=== PATIENT | male | born 2000 | race African-American/Black ===

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

== ENCOUNTER 2019-05-15 19:30 | Emergency (ER) | payer OTHER ==
[2019-05-15] MEDS ORDERED: SODIUM CHLORIDE 0.9% 1000ML 1,000 ML IVS PRN (19:46)
[2019-05-15] MEDS ORDERED: SODIUM CHLORIDE 0.9% (FLUSH) 10 ML SYG IV PRN (19:46)
[2019-05-15 19:47] VITALS: O2SAT 99
[2019-05-15] MEDS ORDERED: KETOROLAC TROMETHAMINE INJ 30 MG/ML VIAL IV ONE (20:03)
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
--- NOTE | 2019-05-15 20:24 | RAD ---
EXAM: XR Chest, 1 View CLINICAL HISTORY: seizure TECHNIQUE: Frontal view of the chest. COMPARISON: No relevant prior studies available. FINDINGS: Limitations: None. Lungs: Unremarkable. No consolidation. Pleural space: Unremarkable. No pneumothorax. Heart: Unremarkable. No cardiomegaly. Mediastinum: Unremarkable. Bones/joints: Unremarkable. IMPRESSION: No acute findings. Electronically signed by: Dora Weiss MD 05/15/2019 8:23 PM CDT
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
[2019-05-15] MEDS ORDERED: POTASSIUM CHLORIDE ELIXIR 20 MEQ/15 ML UD PO ONE (21:10)
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
--- NOTE | 2019-05-15 21:14 | CT ---
EXAM: CT Thoracic Spine Without Intravenous Contrast. CT Lumbar Spine Without Intravenous Contrast. CLINICAL HISTORY: The patient is 19 years old and is Male; seizure with LOC, low back pain midline ttp TECHNIQUE: Axial computed tomography images of the thoracic and lumbar spine without intravenous contrast. Sagittal and coronal reformatted images were created and reviewed. This CT exam was performed using one or more of the following dose reduction techniques: automated exposure control, adjustment of the mA and/or kV according to patient size, and/or use of iterative reconstruction technique. COMPARISON: No relevant prior studies available. FINDINGS: Vertebrae: Unremarkable. No acute fracture. No subluxation. Discs/spinal canal/neural foramina: Motion limits evaluation of L2/3. No spinal canal stenosis. Soft tissues: Unremarkable. IMPRESSION: No acute spine abnormality. No fracture or subluxation seen within the thoracic or lumbar spine. Electronically signed by: Benny Burt MD 05/15/2019 9:12 PM CDT
[2019-05-15] MEDS ORDERED: levETIRAcetam INJ 1,000 MG in SODIUM CHLORIDE 0.9% 100ML 100 ML IVPB ONE (21:38)
[2019-05-15] MEDS ORDERED: SODIUM CHLORIDE 0.9% 100ML 100 ML IVPB ONE (21:45)
[2019-05-15] MEDS ORDERED: levETIRAcetam INJ 100 MG/ML VIAL IVPB ONE (21:45)
[2019-05-15] MEDS ORDERED: SODIUM CHLORIDE 0.9% 1000ML 1,000 ML IVS ONE (22:15)
[2019-05-15 23:48] VITALS: BP 113/74; TEMP 98.4
== END 2019-05-15 23:47 | disposition short-term general hospital (02) ==
LOC: ER 19:30
DX: G40.909 Epilepsy, unspecified, not intractable, without status epilepticus (principal); M62.82 Rhabdomyolysis; R07.9 Chest pain, unspecified; F32.9 Major depressive disorder, single episode, unspecified; Z79.899 Other long term (current) drug therapy; Z88.8 Allergy status to other drugs, medicaments and biological substances
CPT/HCPCS: 36415; 70450; 71045; 72125; 72128; 72131; 80053; 80307; 80320; 80329; 81001; 82550; 82553; 83735; 84484; 85025; 85610; 85730; 93005; J1885; J7030; J7050

== ENCOUNTER 2019-05-19 17:10 | Emergency (ER) | payer OTHER ==
[2019-05-19] MEDS ORDERED: SODIUM CHLORIDE 0.9% 1000ML 1,000 ML IVS ONE (17:20)
[2019-05-19 17:46] VITALS: O2SAT 99
--- NOTE | 2019-05-19 18:37 | CT ---
EXAM: Cervical Spine (accession [id number]), Head (accession [id number]) CLINICAL INDICATION: 19-year-old male status post fall with neck pain. COMPARISON: None. TECHNIQUE: CT brain without contrast. This exam was performed according to our departmental dose optimization program which includes use of automated exposure control, adjustment of the mA and/or kV according to patient size and/or use of iterative reconstruction technique. FINDINGS: Examination findings are significantly limited by motion streak artifact. The possibility of extra-axial or sulcal subarachnoid hemorrhage cannot be excluded. Repeat imaging is recommended when the patient is clinically able. The ventricles, sulci, and cisterns are symmetric and unremarkable. The lockhart-white matter differentiation is preserved. There is no mass effect, midline shift, intra- or extra-axial fluid collection/acute hemorrhage. The osseous structures are unremarkable. The paranasal sinuses and mastoid air cells are clear. IMPRESSION: 1. No gross acute intracranial abnormalities. 2. Examination findings are significantly limited by motion streak artifact. The possibility of extra-axial or sulcal subarachnoid hemorrhage cannot be excluded. Repeat imaging is recommended when the patient is clinically able. TECHNIQUE: Cervical spine CT was performed without contrast. Multiplanar reformatted images were provided. This exam was performed according to our departmental dose optimization program which includes use of automated exposure control, adjustment of the mA and/or kV according to patient size and/or use of iterative reconstruction technique. COMPARISON: None. FINDINGS: There is normal alignment of the cervical spine without fracture or subluxation. The facets are normal in alignment bilaterally. The posterior elements including the spinous processes are intact. Straightening of the cervical spine which may be secondary to positioning for the examination. Morphology and attenuation of the vertebral bodies and intervertebral disk spaces is within normal limits. The pre-and paravertebral soft tissues are within normal limits. IMPRESSION: 1. Straightening of the cervical spine which may be secondary to positioning for the examination versus spasm. 2. No fracture or acute subluxation. Electronically signed by: Aranza Montana MD 05/19/2019 6:36 PM CDT
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
[2019-05-19 19:13] VITALS: BP 117/66; TEMP 97.2
== END 2019-05-19 19:04 | disposition home or self-care (01) ==
LOC: ER 17:10
DX: R56.9 Unspecified convulsions (principal); R51 Headache; M54.2 Cervicalgia; Z79.899 Other long term (current) drug therapy; Z88.8 Allergy status to other drugs, medicaments and biological substances
CPT/HCPCS: 36415; 70450; 72125; 80053; 83605; 85025; J7030

== ENCOUNTER 2019-06-04 22:47 | Emergency (ER) | payer OTHER ==
[2019-06-04 23:02] VITALS: TEMP 97; O2SAT 99
--- NOTE | 2019-06-04 23:26 | RAD ---
EXAM DESCRIPTION: Knee,Right 1 or 2 Views CLINICAL HISTORY: 19 years Male right knee pain COMPARISON: None TECHNIQUE: Two images of the right knee were obtained. FINDINGS: No fracture seen. Normal bony mineralization. No erosive or lytic lesions. IMPRESSION: No fracture or dislocation noted. Electronically signed by: Hortencia Vaughn MD 06/04/2019 11:25 PM CDT
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
[2019-06-04] MEDS ORDERED: IBUPROFEN 200 MG TAB ONE (23:45)
[2019-06-04] MEDS ORDERED: IBUPROFEN 200 MG TAB PO ONE (23:49)
[2019-06-05 00:21] VITALS: BP 118/69
== END 2019-06-05 00:21 | disposition home or self-care (01) ==
LOC: ER 22:47
DX: S83.421A Sprain of lateral collateral ligament of right knee, initial encounter (principal); F84.0 Autistic disorder; F31.9 Bipolar disorder, unspecified; F90.9 Attention-deficit hyperactivity disorder, unspecified type; R56.9 Unspecified convulsions; Z79.899 Other long term (current) drug therapy; Z88.8 Allergy status to other drugs, medicaments and biological substances; Z87.828 Personal history of other (healed) physical injury and trauma; W19.XXXA Unspecified fall, initial encounter; Y92.89 Other specified places as the place of occurrence of the external cause

== ENCOUNTER 2019-07-14 09:28 | Emergency (ER) | payer OTHER ==
[2019-07-14] MEDS ORDERED: SODIUM CHLORIDE 0.9% (FLUSH) 10 ML SYG IV PRN (09:45)
[2019-07-14 10:17] VITALS: TEMP 97.1
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
[2019-07-14 12:08] VITALS: BP 136/81; O2SAT 100
== END 2019-07-14 11:56 | disposition home or self-care (01) ==
LOC: ER 09:28
DX: G40.909 Epilepsy, unspecified, not intractable, without status epilepticus (principal); Z79.899 Other long term (current) drug therapy; Z88.8 Allergy status to other drugs, medicaments and biological substances
CPT/HCPCS: 36415; 80048; 80076; 81001; 83690; 85025; 93005; J2060

== ENCOUNTER 2019-07-14 19:48 | Emergency (ER) | payer OTHER ==
[2019-07-14 20:23] VITALS: TEMP 97.8; O2SAT 99
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
[2019-07-14 21:08] VITALS: BP 122/70
== END 2019-07-14 21:08 | disposition short-term general hospital (02) ==
LOC: ER 19:48
DX: G40.919 Epilepsy, unspecified, intractable, without status epilepticus (principal); R51 Headache; F79 Unspecified intellectual disabilities; Z79.899 Other long term (current) drug therapy; Z88.8 Allergy status to other drugs, medicaments and biological substances

== ENCOUNTER 2019-10-12 18:54 | Emergency (ER) | payer OTHER ==
[2019-10-12 19:12] VITALS: TEMP 98.9
[2019-10-12] MEDS ORDERED: SODIUM CHLORIDE 0.9% (FLUSH) 10 ML SYG IV PRN (19:22)
[2019-10-12] MEDS ORDERED: SODIUM CHLORIDE 0.9% 1000ML 1,000 ML IVS ONE (19:24)
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
--- NOTE | 2019-10-12 20:51 | CT ---
EXAM DESCRIPTION: Head CLINICAL HISTORY: blunt head injury, scalp contusion COMPARISON: None Available. TECHNIQUE: Contiguous axial images of the brain were obtained without the administration of intravenous contrast. This exam was performed according to our departmental dose-optimization program, which includes automated exposure control, adjustment of the mA and/or kV according to patient size and/or use of iterative reconstruction technique. FINDINGS: Several images are degraded by artifact. There is no discrete acute intracranial hemorrhage or mass effect. Ventricular system is within normal limits. There is adequate lockhart-white matter differentiation. There is no skull fracture. The visualized paranasal sinuses and mastoid air cells are within normal limits. IMPRESSION: No discrete acute intracranial abnormalities. Several images are degraded by artifact. Electronically signed by: Daniel Peterson MD 10/12/2019 8:49 PM [facility]
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
--- NOTE | 2019-10-12 20:54 | RAD ---
EXAM DESCRIPTION: Chest, x-ray 1 View CLINICAL HISTORY: acute anxiety, agitation COMPARISON: May 15, 2019 FINDINGS: Cardiac silhouette is within normal limits. There is no focal parenchymal or pleural disease. There is no acute osseous process visualized. IMPRESSION: No evidence of acute cardiopulmonary disease. Electronically signed by: Daniel Peterson MD 10/12/2019 8:52 PM TUBE DISPATCHER
--- NOTE | 2019-10-12 20:56 | CT ---
EXAM DESCRIPTION: Orbits CLINICAL HISTORY: acute BL vision changes, s/p blunt head trauma COMPARISON: None Available. TECHNIQUE: Contiguous axial images of the orbits were obtained without the administration of intravenous contrast. This exam was performed according to our departmental dose-optimization program, which includes automated exposure control, adjustment of the mA and/or kV according to patient size and/or use of iterative reconstruction technique. FINDINGS: There is no acute orbital fracture. There is no orbital emphysema. The paranasal sinuses are well aerated. There is no bony destruction. The retrobulbar fat is within normal limits. IMPRESSION: No acute abnormalities. Electronically signed by: Daniel Peterson MD 10/12/2019 8:55 PM PIPING MANAGER
[2019-10-12 21:47] VITALS: BP 138/79; O2SAT 99
== END 2019-10-12 21:52 | disposition home or self-care (01) ==
LOC: ER 18:54
DX: S06.0X0A Concussion without loss of consciousness, initial encounter (principal); R46.89 Other symptoms and signs involving appearance and behavior; M54.2 Cervicalgia; F84.0 Autistic disorder; R56.9 Unspecified convulsions; Z79.899 Other long term (current) drug therapy; Z88.8 Allergy status to other drugs, medicaments and biological substances; W22.09XA Striking against other stationary object, initial encounter; Y92.810 Car as the place of occurrence of the external cause
CPT/HCPCS: 70450; 70480; 71045; 72125; 80053; 80307; 80320; 80329; 81001; 84484; 85025; 93005; J7030

== ENCOUNTER 2019-11-17 | Emergency (ER) | payer OTHER | END 2019-11-17 23:09 | disposition left against medical advice (07) ==

== ENCOUNTER 2019-12-30 19:48 | Emergency (ER) | payer OTHER ==
[2019-12-30] MEDS ORDERED: SULFA/TRIMETH 800/160 (DS) TAB 1 EA TAB PO ONE (20:24)
--- NOTE | 2019-12-30 20:27 | ED.PDOC ---
History of Present Illness - General Chief Complaint: Skin/Abrasion/Tear Stated Complaint: "abcess to private area" Time Seen by Provider: 12/30/19 20:24 Source: patient Exam Limitations: no limitations - History of Present Illness Initial Comments: The patient is a 19-year-old -[place] male presents emergency room secondary to a small tender erythematous papule to the dorsal aspect of his penis present for the last 2 days. Mild cellulitis but no evidence of any drainable abscess. The patient adamantly denies any sexual activity at all. No other areas of obvious infection. No drainage at this point. No urethral discharge. Timing/Duration: other - 48 hours according to the patient Severity: mild Improving Factors: nothing Worsening Factors: nothing Associated Symptoms: denies symptoms Allergies/Adverse Reactions: Allergies Aripiprazole [From [facility]] Allergy (Verified 11/08/19 13:07) Home Medications: Ambulatory Orders Oxcarbazepine 600 mg PO BID 12/10/18 Topiramate 200 mg PO BID 12/10/18 Cetirizine HCl [Allergy Relief] 10 mg PO DAILY 07/14/19 Risperidone 1 mg PO BEDTIME 07/14/19 Sertraline HCl [Zoloft] 50 mg PO DAILY 07/14/19 Ogmalfqvooywh-Rycq-Fypewplcbj [Fioricet] 1 tab PO Q8H PRN 11/03/19 Clonazepam 1 mg PO DAILY PRN 11/03/19 Hydroxyzine Pamoate 25 mg PO BID 11/03/19 Naproxen [Naproxen EC] 500 mg PO BID 11/03/19 Acetaminophen [Tylenol] 650 mg PO Q6H PRN #30 tab 11/06/19 Amoxicillin & Pot Clavulanate [Augmentin Tab] 875 mg PO BID 10 Days #20 tab 11/06/19 Ibuprofen 600 mg PO Q6H PRN #20 tab 11/06/19 Sulfa/Trimeth 800/160 (Ds) Tab [Bactrim DS] 1 tablet PO BID 10 Days #20 tab 11/06/19 diazePAM [Valium] 5 mg PO Q6H PRN #12 tab 11/10/19 Sulfa/Trimeth 800/160 (Ds) Tab [Bactrim DS Tab] 1 ea PO BID #10 tab 12/30/19 Review of Systems - Review of Systems Constitutional: States: no symptoms reported EENTM: States: no symptoms reported Respiratory: States: no symptoms reported Cardiology: States: no symptoms reported Gastrointestinal/Abdominal: States: no symptoms reported Genitourinary: States: see HPI Musculoskeletal: States: no symptoms reported Skin: States: see HPI Neurological: States: no symptoms reported Endocrine: States: no symptoms reported All other Systems: No Change from Baseline Past Medical History (General) - Patient Medical History Hx Seizures: Yes Hx Stroke: No Hx Dementia: No Hx Asthma: No Hx of COPD: No Hx Cardiac Disorders: No Hx Congestive Heart Failure: No Hx Pacemaker: No Hx Hypertension: No Hx Thyroid Disease: No Hx Diabetes: No Hx Gastroesophageal Reflux: No Hx Renal Disease: No Hx Cancer: No Hx of HIV: No Hx Hepatitis C: No Hx MRSA: No - Vaccination History Hx Tetanus, Diphtheria Vaccination: Yes Hx Influenza Vaccination: No Hx Pneumococcal Vaccination: No - Social History Hx Tobacco Use: No Hx Chewing Tobacco Use: No Hx Alcohol Use: No Hx Substance Use: No Hx Substance Use Treatment: No Hx Depression: No Hx Physical Abuse: No Hx Emotional Abuse: No Hx Suspected Abuse: No - Female History Patient : No Family Medical History - Family History Mother Family History: Unknown Living Status: Still Living Physical Exam - Physical Exam General Appearance: Alert, Comfortable, No apparent distress Eye Exam: bilateral normal Ears, Nose, Throat: hearing grossly normal Neck: full range of motion Respiratory: no respiratory distress, no accessory muscle use Cardiovascular/Chest: normal peripheral pulses, no edema Peripheral Pulses: radial,right: 2+, radial,left: 2+ Extremity: normal range of motion, no pedal edema, normal capillary refill 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 The patiently will be placed on Bactrim for the next 5 days with the first dose given now. There is no drainage at this point, however over the next day or 2 the area may mature and drain. If the area is failing to improve over the next 48 to 72 hours then he does need to be reevaluated by his primary care doctor. Obviously if he is worsening then he needs to return here. There is no abscess to drain at this point. ER warnings are given. [id number] Departure - Departure Clinical Impression: Cellulitis of male genitalia Disposition: Discharge to Home or Self Care Condition: Fair Departure Forms: ED Discharge - Pt. Copy, Patient Portal Self Enrollment Instructions: DI for Wound Infection Diet: regular diet Activity: increase activity as tolerated Referrals: Shala Castaneda NP [Primary Care Provider] - 1-2 Weeks Prescriptions: Sulfa/Trimeth 800/160 (Ds) Tab [Bactrim DS Tab] 1 ea PO BID #10 tab Home Medications: Ambulatory Orders Oxcarbazepine 600 mg PO BID 12/10/18 Topiramate 200 mg PO BID 12/10/18 Cetirizine HCl [Allergy Relief] 10 mg PO DAILY 07/14/19 Risperidone 1 mg PO BEDTIME 07/14/19 Sertraline HCl [Zoloft] 50 mg PO DAILY 07/14/19 Kjdjpxidpyacb-Gwfu-Zaxdtnkezp [Fioricet] 1 tab PO Q8H PRN 11/03/19 Clonazepam 1 mg PO DAILY PRN 11/03/19 Hydroxyzine Pamoate 25 mg PO BID 11/03/19 Naproxen [Naproxen EC] 500 mg PO BID 11/03/19 Acetaminophen [Tylenol] 650 mg PO Q6H PRN #30 tab 11/06/19 Amoxicillin & Pot Clavulanate [Augmentin Tab] 875 mg PO BID 10 Days #20 tab 11/06/19 Ibuprofen 600 mg PO Q6H PRN #20 tab 11/06/19 Sulfa/Trimeth 800/160 (Ds) Tab [Bactrim DS] 1 tablet PO BID 10 Days #20 tab 11/06/19 diazePAM [Valium] 5 mg PO Q6H PRN #12 tab 11/10/19 Sulfa/Trimeth 800/160 (Ds) Tab [Bactrim DS Tab] 1 ea PO BID #10 tab 12/30/19 Additional Instructions: Patient is a 19-year-old -[place] male presented emergency room secondary to what appears to be a small area of cellulitis to the dorsal aspect of his penis present for last 48 hours only, according to him. The patiently will be placed on Bactrim for the next 5 days with the first dose given now. There is no drainage at this point, however over the next day or 2 the area may mature and drain. If the area is failing to improve over the next 48 to 72 hours then he does need to be reevaluated by his primary care doctor. Obviously if he is worsening then he needs to return here. There is no abscess to drain at this point. ER warnings are given.
[2019-12-30 20:31] VITALS: TEMP 98.4
[2019-12-30 20:52] VITALS: BP 135/71; O2SAT 96
== END 2019-12-30 20:52 | disposition home or self-care (01) ==
LOC: ER 19:48
DX: N48.22 Cellulitis of corpus cavernosum and penis (principal)

== ENCOUNTER 2020-02-07 13:04 | Emergency (ER) | payer OTHER ==
[2020-02-07 13:19] VITALS: BP 131/78; TEMP 97.6; O2SAT 100
--- NOTE | 2020-02-07 13:32 | ED.PDOC ---
History of Present Illness - General Chief Complaint: Syncope/Near Syncope Stated Complaint: "passed out" Time Seen by Provider: 02/07/20 13:08 Source: patient, RN notes reviewed, Vital Signs reviewed, EMS notes reviewed, family Additional Information: 20yo M h/o ADHD with reported "passing out" prior to arrival. Patient reports he feel backwards while at work after becoming "dizzy." He reported he remembered the incident, did not bite tongue or urinate/defecate on self. Did report some transient chest pain, but denies any symptoms on initial evaluation. No other history of cardiac disease, epilepsy, or other syncope. - History of Present Illness Allergies/Adverse Reactions: Allergies Aripiprazole [From [place]] Allergy (Verified 11/08/19 13:07) Home Medications: Ambulatory Orders Oxcarbazepine 600 mg PO BID 12/10/18 Topiramate 200 mg PO BID 12/10/18 Cetirizine HCl [Allergy Relief] 10 mg PO DAILY 07/14/19 Risperidone 1 mg PO BEDTIME 07/14/19 Sertraline HCl [Zoloft] 50 mg PO DAILY 07/14/19 Blkbqyeydiwsu-Jnwl-Znykrlewyj [Fioricet] 1 tab PO Q8H PRN 11/03/19 Clonazepam 1 mg PO DAILY PRN 11/03/19 Hydroxyzine Pamoate 25 mg PO BID 11/03/19 Naproxen [Naproxen EC] 500 mg PO BID 11/03/19 Acetaminophen [Tylenol] 650 mg PO Q6H PRN #30 tab 11/06/19 Amoxicillin & Pot Clavulanate [Augmentin Tab] 875 mg PO BID 10 Days #20 tab Ibuprofen 600 mg PO Q6H PRN #20 tab 11/06/19 Sulfa/Trimeth 800/160 (Ds) Tab [Bactrim DS] 1 tablet PO BID 10 Days #20 tab 11/06/19 diazePAM [Valium] 5 mg PO Q6H PRN #12 tab 11/10/19 Sulfa/Trimeth 800/160 (Ds) Tab [Bactrim DS Tab] 1 ea PO BID #10 tab 12/30/19 Review of Systems - Review of Systems Constitutional: Denies: chills, fever EENTM: States: no symptoms reported Respiratory: States: no symptoms reported Cardiology: States: chest pain Genitourinary: States: no symptoms reported Musculoskeletal: States: no symptoms reported Neurological: Denies: numbness, paresthesia, tingling All other Systems: Reviewed and Negative Past Medical History (General) - Patient Medical History Hx Seizures: No Hx Stroke: No Hx Dementia: No Hx Asthma: No Hx of COPD: No Hx Cardiac Disorders: No Hx Congestive Heart Failure: No Hx Pacemaker: No Hx Hypertension: No Hx Thyroid Disease: No Hx Diabetes: No Hx Gastroesophageal Reflux: No Hx Renal Disease: No Hx Cancer: No Hx of HIV: No Hx Hepatitis C: No Hx MRSA: No Surgical History: no surgical history - Vaccination History Hx Tetanus, Diphtheria Vaccination: Yes Hx Influenza Vaccination: No Hx Pneumococcal Vaccination: No - Social History Hx Tobacco Use: No Hx Chewing Tobacco Use: No Hx Alcohol Use: No Hx Substance Use: No Hx Substance Use Treatment: No Hx Depression: Yes Feels Threatened In Home Enviroment: No Feels Threatened In a Relationship: No Hx Physical Abuse: No Hx Emotional Abuse: No Hx Suspected Abuse: No - Female History Patient is a Female of Child Bearing Age (10 -59 yrs old): No Patient : No Physical Exam - Physical Exam General Appearance: Comfortable, No apparent distress, Well Developed Eyes, Ears, Nose, Throat Exam: PERRL/EOMI, TMs normal, pharynx normal Neck: non-tender, full range of motion, supple Cardiovascular/Respiratory: regular rate, rhythm, no M/R/G, normal breath sounds, no respiratory distress Gastrointestinal/Abdominal: normal bowel sounds, non tender Back Exam: normal inspection Extremity: normal range of motion, non-tender 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 Institutional screening protocol for coronavirus performed in triage. The patients history and physical exam at this visit does not appear to indicate a clear cause for syncope. ECG without noted acute arrhythmia, preexcitation, or Brugada. Exam did not appear to have trauma or acute neurologic deficit to indicate need for emergent imaging. CXR without mediastinal widening. Orthostatics negative and does not clinically appear acutely volume depleted. The patient does not appear to have a serious medical comorbidity contributory to syncope at this time. Low suspicion for PE, ACS, or acute aortic pathology at this time. HEART low risk, PERC negative, Wells low risk. Discussed HEART pathway with patient, and he does not want to stay for additional blood. He has requested discharge and did not want further evaluation. I discussed need for repeat evaluation by primary care physician within the next 1-2 days for further work clearance, and cardiology/neurology information given as well if he has further episodes. I have discussed the aforementioned with the patient, and they are comfortable with and desiring discharge. ED warnings given, safe transitions discussed. - EKG/XRAY/CT Comments: 1315 NSR rate of 60, normal axis, normal intervals, no STEMI noted Departure - Departure Clinical Impression: Syncope Time of Disposition: 14:51 Disposition: Discharge to Home or Self Care Condition: Good Departure Forms: ED Discharge - Pt. Copy, Patient Portal Self Enrollment Instructions: DI for Syncope in Adults (Fainting) Diet: resume usual diet Referrals: BRUCE FLORES MD [Consulting Staff] - 1-2 Weeks EDUARDO MANUEL [Referring] - 1-2 Weeks NI MEJIA MD [Physicians] - 1-2 Weeks Shala Castaneda NP [Primary Care Provider] - 1-2 Days Home Medications: Ambulatory Orders Oxcarbazepine 600 mg PO BID 12/10/18 Topiramate 200 mg PO BID 12/10/18 Cetirizine HCl [Allergy Relief] 10 mg PO DAILY 07/14/19 Risperidone 1 mg PO BEDTIME 07/14/19 Sertraline HCl [Zoloft] 50 mg PO DAILY 07/14/19 Rmfesltbqnsmq-Yhiy-Fuwcigeuav [Fioricet] 1 tab PO Q8H PRN 11/03/19 Clonazepam 1 mg PO DAILY PRN 11/03/19 Hydroxyzine Pamoate 25 mg PO BID 11/03/19 Naproxen [Naproxen EC] 500 mg PO BID 11/03/19 Acetaminophen [Tylenol] 650 mg PO Q6H PRN #30 tab 11/06/19 Amoxicillin & Pot Clavulanate [Augmentin Tab] 875 mg PO BID 10 Days #20 tab 11/06/19 Ibuprofen 600 mg PO Q6H PRN #20 tab 11/06/19 Sulfa/Trimeth 800/160 (Ds) Tab [Bactrim DS] 1 tablet PO BID 10 Days #20 tab 11/06/19 diazePAM [Valium] 5 mg PO Q6H PRN #12 tab 11/10/19 Sulfa/Trimeth 800/160 (Ds) Tab [Bactrim DS Tab] 1 ea PO BID #10 tab 12/30/19 Additional Instructions: No strenuous activity or heavy lifting until cleared by your physician.
== END 2020-02-07 15:02 | disposition home or self-care (01) ==
LOC: ER 13:04
DX: R55 Syncope and collapse (principal); R07.9 Chest pain, unspecified

== ENCOUNTER 2020-03-05 13:19 | Emergency (ER) | payer OTHER ==
--- NOTE | 2020-03-05 13:36 | ED.PDOC ---
History of Present Illness - General Time Seen by Provider: 03/05/20 13:32 Source: patient, RN notes reviewed, Vital Signs reviewed Additional Information: 20-year-old male patient, presents to the ER because of 1 day history of fever unquantified sore throat and cough, patient denies cigarettes alcohol drugs denies any known exposure no travels he stated that he has been only going to the store and back, patient arrived with a steady gait does not be in any distre ss unable to speak in complete sentences - History of Present Illness Timing/Duration: other - today EENT Location: throat Prearrival Treatment: no prearrival treatment Improving Factors: nothing Associated Symptoms: denies symptoms Allergies/Adverse Reactions: Allergies [facility] [[facility] Allergy (Verified 03/05/20 13:40) Home Medications: Ambulatory Orders Oxcarbazepine 600 mg PO BID 12/10/18 Topiramate 200 mg PO BID 12/10/18 Cetirizine HCl [Allergy Relief] 10 mg PO DAILY 07/14/19 Risperidone 1 mg PO BEDTIME 07/14/19 Sertraline HCl [Zoloft] 50 mg PO DAILY 07/14/19 Clonazepam 1 mg PO DAILY PRN 11/03/19 Hydroxyzine Pamoate 25 mg PO BID 11/03/19 Naproxen [Naproxen EC] 500 mg PO BID 11/03/19 Ibuprofen 600 mg PO Q6H PRN #20 tab 11/06/19 Sulfa/Trimeth 800/160 (Ds) Tab [Bactrim DS] 1 tablet PO BID 10 Days #20 tab 11/06/19 diazePAM [Valium] 5 mg PO Q6H PRN #12 tab 11/10/19 Sulfa/Trimeth 800/160 (Ds) Tab [Bactrim DS Tab] 1 ea PO BID #10 tab 12/30/19 Amoxicillin 500 mg PO BID #14 cap 03/05/20 Ibuprofen [Motrin] 600 mg PO Q6HR #20 tab 03/05/20 Review of Systems - Review of Systems Constitutional: States: fever EENTM: States: throat pain Respiratory: States: cough Cardiology: States: no symptoms reported Gastrointestinal/Abdominal: States: no symptoms reported, abdominal pain Genitourinary: States: no symptoms reported Musculoskeletal: States: no symptoms reported Skin: States: no symptoms reported Neurological: States: no symptoms reported Endocrine: States: no symptoms reported Hematologic/Lymphatic: States: no symptoms reported Past Medical History (General) - Patient Medical History Hx Seizures: No Hx Stroke: No Hx Dementia: No Hx Asthma: No Hx of COPD: No Hx Cardiac Disorders: No Hx Congestive Heart Failure: No Hx Pacemaker: No Hx Hypertension: No Hx Thyroid Disease: No Hx Diabetes: No Hx Gastroesophageal Reflux: No Hx Renal Disease: No Hx Cancer: No Hx of HIV: No Hx Hepatitis C: No Hx MRSA: No - Vaccination History Hx Tetanus, Diphtheria Vaccination: Yes Hx Influenza Vaccination: No Hx Pneumococcal Vaccination: No - Social History Hx Tobacco Use: No Hx Chewing Tobacco Use: No Hx Alcohol Use: No Hx Substance Use: No Hx Substance Use Treatment: No Hx Depression: Yes Hx Physical Abuse: No Hx Emotional Abuse: No Hx Suspected Abuse: No - Female History Patient : No Family Medical History - Family History Mother Family History: Unknown Living Status: Still Living Physical Exam - Physical Exam General Appearance: Alert, Well Developed, Well Groomed, Well Hydrated, Well Nourished Eye Exam: bilateral normal Ear Exam: bilateral ear: auricle normal Nasal Exam: normal inspection Throat Exam: normal mouth inspection, pharynx normal Neck: non-tender, full range of motion, supple, normal inspection, trachea midline Cardiovascular/Respiratory: regular rate, rhythm, no M/R/G, normal peripheral pulses, no JVD, normal breath sounds, no respiratory distress Abdominal Exam: non-tender 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 The heart size is normal. The pulmonary vascularity is unremarkable. The lungs are clear. There is no consolidation, infiltrate, pleural effusion, or pneumothorax. IMPRESSION: No evidence of active pulmonary disease. 03/05/20 13:54 03/05/20 14:07 Was positive for strep. Patient does not have any urinary drooling there is no submental masses neck masses or any other significant neck pathology on physical exam, patient will be charged home with Pen-Vee K for 10 days twice a day and Tylenol 3 Return to the ER immediately if high fever chills shortness of breath excessive salivation excessive pain while swallowing difficulty swallowing change in your voice or any other concern 03/05/20 14:09 COVID test was ordered but the results will not be available today the patient weighs in the result he should stay home quarantine Departure - Departure Clinical Impression: Strep sore throat Disposition: Discharge to Home or Self Care Condition: Fair Instructions: Sore Throat in Adults Referrals: Shala Castaneda, PAUL [Primary Care Provider] - 1-2 Weeks Prescriptions: Ibuprofen [Motrin] 600 mg PO Q6HR #20 tab Amoxicillin 500 mg PO BID #14 cap Home Medications: Ambulatory Orders Oxcarbazepine 600 mg PO BID 12/10/18 Topiramate 200 mg PO BID 12/10/18 Cetirizine HCl [Allergy Relief] 10 mg PO DAILY 07/14/19 Risperidone 1 mg PO BEDTIME 07/14/19 Sertraline HCl [Zoloft] 50 mg PO DAILY 07/14/19 Clonazepam 1 mg PO DAILY PRN 11/03/19 Hydroxyzine Pamoate 25 mg PO BID 11/03/19 Naproxen [Naproxen EC] 500 mg PO BID 11/03/19 Ibuprofen 600 mg PO Q6H PRN #20 tab 11/06/19 Sulfa/Trimeth 800/160 (Ds) Tab [Bactrim DS] 1 tablet PO BID 10 Days #20 tab 11/06/19 diazePAM [Valium] 5 mg PO Q6H PRN #12 tab 11/10/19 Sulfa/Trimeth 800/160 (Ds) Tab [Bactrim DS Tab] 1 ea PO BID #10 tab 12/30/19 Amoxicillin 500 mg PO BID #14 cap 03/05/20 Ibuprofen [Motrin] 600 mg PO Q6HR #20 tab 03/05/20 Additional Instructions: Return to the ER immediately if high fever chills shortness of breath excessive salivation excessive pain while swallowing difficulty swallowing change in your voice or any other concern
--- NOTE | 2020-03-05 13:51 | RAD ---
EXAM: Chest,1 View CLINICAL INDICATION: Cough COMPARISON: 02/07/2020 FINDINGS: A single view of the chest was obtained. The heart size is normal. The pulmonary vascularity is unremarkable. The lungs are clear. There is no consolidation, infiltrate, pleural effusion, or pneumothorax. IMPRESSION: No evidence of active pulmonary disease. Electronically signed by: Isma Lala MD 03/05/2020 1:50 PM CDT
[2020-03-05] MEDS ORDERED: AMOXICILLIN 500 MG CAP PO ONE (14:12)
[2020-03-05 14:23] VITALS: BP 111/75; TEMP 98.1; O2SAT 97
== END 2020-03-05 14:20 | disposition home or self-care (01) ==
LOC: ER 13:19
DX: J02.0 Streptococcal pharyngitis (principal)
CPT/HCPCS: 71045; 87880; U0002

== ENCOUNTER 2020-03-07 11:55 | Emergency (ER) | payer OTHER ==
[2020-03-07 12:18] VITALS: BP 137/78; TEMP 98.8; O2SAT 100
--- NOTE | 2020-03-07 12:52 | RAD ---
EXAM DESCRIPTION: Chest,1 View CLINICAL HISTORY: 20 years Male, cough, fever COMPARISON: Previous study March 05, 2020 TECHNIQUE: AP portable chest. FINDINGS: Heart size is normal with normal pulmonary vascularity. No consolidating infiltrate. No pulmonary mass or worrisome nodule. No pneumothorax or pleural effusion. Bones are unremarkable. IMPRESSION: No acute process is identified in the chest. Electronically signed by: Jamel Price MD 03/07/2020 12:50 PM CDT
--- NOTE | 2020-03-07 13:24 | ED.PDOC ---
History of Present Illness - General Chief Complaint: Respiratory Problem Stated Complaint: sob, cough, fever Time Seen by Provider: 03/07/20 13:21 Source: patient, RN notes reviewed, Vital Signs reviewed Exam Limitations: no limitations - History of Present Illness Comments: Patient is a 20-year-old -[place] male with a history of mild mental retardation who presents with complaints of fever, cough and not feeling better. He was seen here on Saturday for the same and was swabbed for COVID and discharged home. Patient denies any production of sputum with the cough. Patient denies any other symptoms. Patient appears nontoxic. The cough is intermittent. Nothing makes the cough better or worse. He has no chest pain. In fact, patient denies any pain at all. Timing/Duration: getting worse, other - 3 days. Cough Quality/Degree: moderate, dry cough Possible Cause: no prior episodes Improving Factors: nothing Worsening Factors: nothing Associated Symptoms: cough Respiratory Risk Factors: no cause identified Allergies/Adverse Reactions: Allergies [facility] Allergy (Verified 03/07/20 12:13) Home Medications: Ambulatory Orders Oxcarbazepine 600 mg PO BID 12/10/18 Topiramate 200 mg PO BID 12/10/18 Cetirizine HCl [Allergy Relief] 10 mg PO DAILY 07/14/19 Risperidone 1 mg PO BEDTIME 07/14/19 Sertraline HCl [Zoloft] 50 mg PO DAILY 07/14/19 Clonazepam 1 mg PO DAILY PRN 11/03/19 Hydroxyzine Pamoate 25 mg PO BID 11/03/19 Naproxen [Naproxen EC] 500 mg PO BID 11/03/19 Ibuprofen 600 mg PO Q6H PRN #20 tab 11/06/19 Sulfa/Trimeth 800/160 (Ds) Tab [Bactrim DS] 1 tablet PO BID 10 Days #20 tab 11/06/19 diazePAM [Valium] 5 mg PO Q6H PRN #12 tab 11/10/19 Sulfa/Trimeth 800/160 (Ds) Tab [Bactrim DS Tab] 1 ea PO BID #10 tab 12/30/19 Amoxicillin 500 mg PO BID #14 cap 03/05/20 Ibuprofen [Motrin] 600 mg PO Q6HR #20 tab 03/05/20 Review of Systems - Review of Systems Constitutional: States: no symptoms reported, see HPI. Denies: chills, fever, malaise, weakness EENTM: States: no symptoms reported. Denies: eye pain, blurred vision, double vision Respiratory: States: see HPI, cough. Denies: orthopnea, short of breath, stridor, wheezing Cardiology: States: no symptoms reported. Denies: chest pain, palpitations, syncope Gastrointestinal/Abdominal: States: no symptoms reported. Denies: abdominal pain, diarrhea, nausea, vomiting Genitourinary: States: no symptoms reported Musculoskeletal: States: no symptoms reported. Denies: back pain, neck pain Skin: States: no symptoms reported. Denies: change in color, rash Neurological: States: no symptoms reported. Denies: tingling, weakness Endocrine: States: no symptoms reported Hematologic/Lymphatic: States: no symptoms reported All other Systems: No Change from Baseline Past Medical History (General) - Patient Medical History Hx Seizures: No Hx Stroke: No Hx Dementia: No Hx Asthma: No Hx of COPD: No Hx Cardiac Disorders: No Hx Congestive Heart Failure: No Hx Pacemaker: No Hx Hypertension: No Hx Thyroid Disease: No Hx Diabetes: No Hx Gastroesophageal Reflux: No Hx Renal Disease: No Hx Cancer: No Hx of HIV: No Hx Hepatitis C: No Hx MRSA: No Surgical History: no surgical history - Vaccination History Hx Tetanus, Diphtheria Vaccination: Yes Hx Influenza Vaccination: Yes Hx Pneumococcal Vaccination: Yes Immunizations Up to Date: Yes - Social History Hx Tobacco Use: No Hx Chewing Tobacco Use: No Hx Alcohol Use: Yes - occasionally Hx Substance Use: No Hx Substance Use Treatment: No Hx Depression: Yes Hx Physical Abuse: No Hx Emotional Abuse: No Hx Suspected Abuse: No - Female History Patient : No Family Medical History - Family History Mother Family History: Unknown Living Status: Still Living Physical Exam - Physical Exam General Appearance: Alert, Comfortable, No apparent distress, Well Developed, Well Groomed, Well Hydrated, Well Nourished Eye Exam: bilateral normal ENT Exam: normal ENT inspection, hearing grossly normal, pharynx normal Neck: non-tender, full range of motion, supple, normal inspection, trachea midline Respiratory: chest non-tender, lungs clear, normal breath sounds, no respiratory distress, no accessory muscle use Cardiovascular/Chest: normal peripheral pulses, regular rate, rhythm, no edema, no gallop, no JVD, no murmur Gastrointestinal/Abdominal: normal bowel sounds, non tender, soft, no organomegaly, no pulsatile mass Extremity: normal range of motion, non-tender, normal inspection, no pedal edema Neurologic: warp hauler II-XII nml as tested, no motor/sensory deficits, alert, normal mood/affect, oriented x 3 Skin Exam: normal color, warm/dry Lymphatic: no adenopathy Progress - Progress Progress: Differential diagnosis: Influenza, pneumonia, viral URI, COVID among others. 03/07/20 13:25 Patient presents with complaints of cough. Patient was tested for COVID on Saturday and that is still pending. Chest x-ray is negative. Influenza is negative. Plan on discharge home with a diagnosis of a viral URI and follow-up with PCP. Patient voices understanding and agreement with the plan of care. Quintin Bob M.D. #[id number] - Results/Orders Results/Orders: EXAM DESCRIPTION: Chest,1 View CLINICAL HISTORY: 20 years Male, cough, fever COMPARISON: Previous study March 05, 2020 TECHNIQUE: AP portable chest. FINDINGS: Heart size is normal with normal pulmonary vascularity. No consolidating infiltrate. No pulmonary mass or worrisome nodule. No pneumothorax or pleural effusion. Bones are unremarkable. IMPRESSION: No acute process is identified in the chest. Electronically signed by: Jamel Price MD 03/07/2020 12:50 Influenza A: Negative Influenza B: Negative Cover testing from Saturday is still pending. Departure - Departure Clinical Impression: Viral upper respiratory tract infection with cough Time of Disposition: 13:33 Disposition: Discharge to Home or Self Care Condition: Good Departure Forms: ED Discharge - Pt. Copy, Patient Portal Self Enrollment Instructions: Viral Upper Respiratory Infection, Adult (DC) Diet: resume usual diet Activity: increase activity as tolerated Referrals: Shala Castaneda NP [Primary Care Provider] - 1-5 Days Home Medications: Ambulatory Orders Oxcarbazepine 600 mg PO BID 12/10/18 Topiramate 200 mg PO BID 12/10/18 Cetirizine HCl [Allergy Relief] 10 mg PO DAILY 07/14/19 Risperidone 1 mg PO BEDTIME 07/14/19 Sertraline HCl [Zoloft] 50 mg PO DAILY 07/14/19 Clonazepam 1 mg PO DAILY PRN 11/03/19 Hydroxyzine Pamoate 25 mg PO BID 11/03/19 Naproxen [Naproxen EC] 500 mg PO BID 11/03/19 Ibuprofen 600 mg PO Q6H PRN #20 tab 11/06/19 Sulfa/Trimeth 800/160 (Ds) Tab [Bactrim DS] 1 tablet PO BID 10 Days #20 tab 11/06/19 diazePAM [Valium] 5 mg PO Q6H PRN #12 tab 11/10/19 Sulfa/Trimeth 800/160 (Ds) Tab [Bactrim DS Tab] 1 ea PO BID #10 tab 12/30/19 Amoxicillin 500 mg PO BID #14 cap 03/05/20 Ibuprofen [Motrin] 600 mg PO Q6HR #20 tab 03/05/20
== END 2020-03-07 13:45 | disposition home or self-care (01) ==
LOC: ER 11:55
DX: J06.9 Acute upper respiratory infection, unspecified (principal); R05 Cough; F70 Mild intellectual disabilities